=== PATIENT | male | born 2000 | race Two or more races ===

== ENCOUNTER → 2021-04-12 | Outpatient (CLI) | payer BC ==
[2021-04-13 07:07] LABS: RPR Non Reactive (Non Reactive)
== END | disposition home or self-care (01) ==
LOC: LAB 10:42
PROVIDERS: ATTEND Physician Assistant
DX: Z11.3 Encounter for screening for infections with a predominantly sexual mode of transmission (principal)
CPT/HCPCS: 86592; 86703

== ENCOUNTER 2025-09-27 15:06 | Emergency (ER) | payer BC, MEDICAID ==
[~2025-09-27] VITALS: Ht 167.6 cm; Wt 81.2 kg
[2025-09-27 15:31] VITALS: TEMP 97.8
--- NOTE | 2025-09-27 15:59 | ED.PDOC ---
Musculoskeletal HPI Comments This is a 24 year old male presenting to the ED with chief complaint of right ankle pain. Patient reports that he had been playing Volleyball today when he accidentally twisted his right ankle, causing immediate pain. Patient relays that he is now experiencing swelling and pain to the right ankle. Patient denies any numbness, weakness, tingling, or further injuries. Chief Complaint: Lower Extremity Time Seen by MD: 15:56 Reviewed Notes: Nurses Notes, Medications, Allergies Allergies: Coded Allergies: NO KNOWN ALLERGIES (Unverified , 09/27/25) Information Source: Patient Mode of Arrival: Ambulatory Location: Right Extremity Location: Ankle Timing: Hours Prehospital treatment: None Severity: Moderate Able to Move Extremity: Yes Bear Weight: Limited Pain: Moderate Mechanism: Twisting Circumstances: Sporting Onset of Symptoms: After Trauma Symptoms: Swelling, Pain DVT Risk Factors: NONE Last Tetanus: UTD Past Medical History PAST MEDICAL HISTORY: Denies Surgical History: Denies all surgeries Family History Family History: Reviewed,noncontributory to illness Social History Smoker: Non-Smoker Alcohol: Denies ETOH Use Drugs: Denies Drug Use Lives In: Home Constitutional: denies: chills, diaphoresis, fatigue, fever, malaise, sweats, weakness, others EENTM: denies: blurred vision, double vision, ear bleeding, ear discharge, ear drainage, ear pain, ear ringing, eye pain, eye redness, hearing loss, mouth pain, mouth swelling, nasal discharge, nose bleeding, nose congestion, nose pain, photophobia, tearing, throat pain, throat swelling, voice changes, others Respiratory: denies: cough, hemoptysis, orthopnea, SOB at rest, shortness of breath, SOB with excertion, stridor, wheezing, others Cardiovascular: denies: chest pain, dizzy spells, diaphoresis, Dyspnea on exertion, edema, irregular heart beat, left arm pain, lightheadedness, palpitations, PND, syncope, others Gastrointestinal: denies: abdomen distended, abdominal pain, blood streaked bowels, constipated, diarrhea, dysphagia, difficulty swallowing, hematemesis, melena, nausea, poor appetite, poor fluid intake, rectal bleeding, rectal pain, vomiting, others Genitourinary: denies: burning, dysuria, flank pain, frequency, hematuria, incontinence, penile discharge, penile sore, pain, testicle pain, testicle swelling, urgency, others Neurological: denies: dizziness, fainting, headache, left sided numbness, left sided weakness, numbness, paresthesia, pre-existing deficit, right sided numbness, right sided weakness, seizure, speech problems, tingling, tremors, weakness, others Musculoskeletal: reports: others (Right ankle pain and swelling); denies: back pain, gout, joint pain, joint swelling, muscle pain, muscle stiffness, neck pain Integumetry: denies: bruises, change in color, change in hair/nails, dryness, laceration, lesions, lumps, rash, wounds, others Allergic/Immunocompromised: denies: Difficulty Healing, Frequent Infections, Hives, Itching, others Hematologic/Lymphatic: denies: anemia, blood clots, easy bleeding, easy bruisin g, swollen glands, others Endocrine: denies: excessive hunger, excessive sweating, excessive thirst, excessive urination, flushing, intolerance to cold, intolerance to heat, unexplained weight gain, unexplained weight loss, others Psychiatric: denies: anxiety, bipolar disorder, depression, hopeless, panic disorder, schizophrenia, sleepless, suicidal, others All Other Systems: Reviewed and Negative Physical Exam General Appearance: No Apparent Distress, Normal HEENT: Normal ENT Inspection, Pharynx Normal, TMs Normal Neck: Full Range of Motion, Non-Tender, Normal, Normal Inspection Respiratory: Chest Non-Tender, Lungs Clear, No Accessory Muscle Use, No Respiratory Distress, Normal Breath Sounds Cardiovascular: No Edema, No JVD, No Murmur, No Gallop, Normal Peripheral Pulses, Regular Rate/Rhythm Breast Exam: Deferred Gastrointestinal: No Organomegaly, Non Tender, No Pulsatile Mass, Normal Bowel Sounds, Soft Genitalia: Deferred Pelvic: Deferred Rectal: Deferred Extremities: No calf tenderness, Normal capillary refill, Normal inspection, Normal range of motion, Non-tender, No pedal edema Musculoskeletal : Location: Right Extremity Location: Ankle Apperance: Tenderness (Swelling to right lateral malleolus) Neurologic: Alert, career manager II-XII nml as Tested, No Motor Deficits, Normal Affect, Normal Mood, No Sensory Deficits Cerebellar Function: Normal Reflexes: Normal Skin: Dry, Normal Color, Warm Lymphatic: No Adenopathy Was a procedure done? Was a procedure done?: No Differential Diagnosis EXT Differential Diagnosis: Fracture, Sprain, Contusion, Strain X-Ray, Labs, Meds, VS Vital Signs Date Time Temp Pulse Resp B/P (MAP) Pulse Ox O2 Delivery O2 Flow Rate FiO2 09/27/25 15:31 97.8 85 85 140/80 97 97.8 Current Medications Medications (Trade) Dose Ordered Sig/Lino Route Start Time Stop Time Status Last Admin Ibuprofen (Motrin Tablet) 800 mg ONCE ONCE PO 09/27/25 15:45 09/27/25 15:46 DC 09/27/25 16:04 X-Ray, Labs, Meds, VS Comment Crutches given to patient, Tom wrap applied, advised to follow up with PCP in next available appointment. Follow up in 10 days for recheck. Time of 1ST Reevaluation: 16:56 Reevaluation 1ST: Unchanged Patient Education/Counseling: Diagnosis, Treatment, Need For Follow Up (He has been next available appointment. Return to emergency department if symptoms worsen.) Family Education/Counseling: No Family Present Departure 1 Departure Time of Disposition: 16:30 Impression: Primary Impression: Right ankle sprain Qualified Codes: S93.491A - Sprain of other ligament of right ankle, initial encounter Disposition: HOME / SELF CARE / HOMELESS Condition: Stable e-Prescriptions Ibuprofen (Ibuprofen) 800 Mg Tab 1 TAB PO TID PRN, #40 TAB 1 Refill Prov: DEEPAK SHERMAN 09/27/25 Discharged With: Self Critical Care Note Critical Care Time?: No Stability Stability form required: No Heart Score Heart Score: Heart Score Response (Comments) Value History N/A 0 EKG N/A 0 Age N/A 0 Risk Factors N/A 0 Troponin N/A 0 Total 0 I personally scribed for DEEPAK SHERMAN ([email or web address]) on 09/27/25 at 15:59. Electronically submitted by Zac Cheema ([email or web address]). DEEPAK SHERMAN Sep 27, 2025 15:59
[2025-09-27] MEDS: IBUPROFEN 800 MG TAB PO ONE (16:04)
--- NOTE | 2025-09-27 16:23 | DVH ---
CLINICAL INDICATION: pain TECHNIQUE: 3 radiographic views of the right ankle were obtained. COMPARISON: None FINDINGS/IMPRESSION: Small calcification off the tip of the medial malleolus (distal tibia) Correlate clinically for tenderness over this area that would suggest acute osseous injury. Soft tissue swelling over the lateral malleolus.
[2025-09-27] MEDS ORDERED: IBUP-1456 PO (16:32)
[2025-09-27 17:00] VITALS: BP 119/71; PULSE 79; RESP 16; O2SAT 99
== END 2025-09-27 17:05 | disposition home or self-care (01) ==
LOC: ER 15:06
DX: S93.491A Sprain of other ligament of right ankle, initial encounter (principal); X50.1XXA Overexertion from prolonged static or awkward postures, initial encounter; Y93.89 Activity, other specified; Y92.89 Other specified places as the place of occurrence of the external cause; Y99.8 Other external cause status
CPT/HCPCS: 73610